=== PATIENT | female | born 1985 | race Caucasian/White ===

== ENCOUNTER 2020-03-01 18:16 | Outpatient (REF) | payer OTHER, SELFPAY ==
[2020-03-01 17:10] LABS: HCG Quant, Pregnancy 4566 mIU/mL (1-3)
[2020-03-03 17:30] LABS: Estradiol 102 pg/mL (See Note); Progesterone 15.5 ng/mL (See Table)
== END 2020-03-01 18:36 ==
LOC: LBN 18:16
PROVIDERS: PCP Obstetrics & Gynecology; Visit Provider Obstetrics & Gynecology
DX: N96 Recurrent pregnancy loss (principal)
CPT/HCPCS: 82670; 84144; 84702

== ENCOUNTER 2020-03-03 15:48 | Outpatient (REF) | payer OTHER, SELFPAY ==
[2020-03-03 16:54] LABS: HCG Quant, Pregnancy 8390 mIU/mL (1-3)
[2020-03-04 16:52] LABS: Estradiol 111 pg/mL (See Note); Progesterone 15.9 ng/mL (See Table)
== END 2020-03-03 16:08 ==
LOC: LBN 15:48
PROVIDERS: PCP Obstetrics & Gynecology; Visit Provider Obstetrics & Gynecology
DX: N96 Recurrent pregnancy loss (principal)
CPT/HCPCS: 82670; 84144; 84702

== ENCOUNTER 2020-03-25 04:13 | Outpatient (CLI) | payer OTHER, SELFPAY ==
[2020-03-25 15:14] LABS: Abs Immature Grans 0.01 k/cumm (0.0-0.09); Absolute Basophil Count 0.02 k/cumm (0.0-0.2); Absolute Eosinophil Count 0.04 k/cumm (0.0-0.7); Absolute Lymphocyte Count 1.96 k/cumm (1.2-3.4); Absolute Monocyte Count 0.36 k/cumm (0.11-0.7); Basophils % 0.3; Eosinophils % 0.6; HCT 42.2 % (36.0-46.0); HGB 14.3 g/dL (12.0-15.5); Immature Grans % 0.1 %; Lymphocytes % 29.3; Mean Corp. HGB Concentration 33.9 g/dL (32.0-36.0); Mean Corpuscular Hemoglobin 28.7 pg (27.0-33.0); Mean Corpuscular Volume 84.7 fL (80-95); Mean Platelet Volume 10.2 fL (8.0-11.0); Monocytes % 5.4; Neutrophils % 64.3; Platelet Count 207 x1000/uL (130-400); RBC 4.98 m/cumm (4.00-5.20); RBC Distribution Width 13.2 % (11.7-14.6); White Blood Cell Count 6.69 k/cumm (4.4-10.8)
[2020-03-25 16:07] LABS: TSH (W/Ref FT4) 4.52 uIU/mL (0.36-3.74)
[2020-03-25 16:31] LABS: FREE T4 0.96 ng/dL (0.76-1.46)
[2020-03-25 17:00] LABS: *AMPHETAMINES SCREEN URINE Negative (Negative); *BARBITURATES SCREEN URINE Negative (Negative); *BENZODIAZEPINES SCREEN URINE Negative (Negative); Cannabinoids THC Negative (Negative); Cocaine Screen,Urine Negative (Negative); METHADONE URINE SCREEN Negative (Negative); OPIATES URINE SCREEN Negative (Negative); Tricyclic Antidepressants Negative (Negative)
[2020-03-26 10:28] LABS: Hepatitis B Surface Ag Negative (Negative)
[2020-03-26 10:55] LABS: Varicella IgG Antibody Positive (See Note)
[2020-03-26 11:08] LABS: Rubella IgG Ab (UVM) Positive (See Note)
[2020-03-26 11:13] LABS: Hepatitis C Ab w Rflx HCV PCR Negative (Negative)
[2020-03-26 15:53] LABS: Chlamydia Result Negative (Negative); GC Result Negative (Negative)
[2020-03-26 16:58] LABS: HIV-1/2 Ag & Ab Screen Negative (Negative)
[2020-03-27 09:44] LABS: Syphilis Total Ab w/Reflex Nonreactive (Nonreactive)
[2020-04-01 01:53] LABS: Buprenorphine Negative
== END 2020-03-25 04:33 ==
PROVIDERS: PCP Obstetrics & Gynecology; Visit Provider Advanced Practice Midwife
DX: O09.01 Supervision of pregnancy with history of infertility, first trimester (principal)
CPT/HCPCS: 36415; 80307; 86787; 86803; 86850; 86900; 86901; 87340; 87389; 87491; 87591; 84439; 84443; 85025; 86762; 86780; 87086

== ENCOUNTER 2020-04-15 13:13 | Outpatient (REF) | payer OTHER, SELFPAY ==
[2020-04-15 14:10] LABS: FREE T4 1.14 ng/dL (0.76-1.46); TSH 2.32 uIU/mL (0.36-3.74)
[2020-04-22 17:17] LABS: Specimen WB Whole Blood
== END 2020-04-15 13:33 ==
LOC: LBN 13:13
PROVIDERS: PCP Obstetrics & Gynecology; Visit Provider Obstetrics & Gynecology
DX: E03.9 Hypothyroidism, unspecified (principal); O99.281 Endocrine, nutritional and metabolic diseases complicating pregnancy, first trimester; Z36.89 Encounter for other specified antenatal screening
CPT/HCPCS: 81329; 84439; 84443

== ENCOUNTER 2020-06-03 01:02 | Outpatient (CLI) | payer OTHER, SELFPAY ==
--- NOTE | 2020-06-03 07:00 | DI.US_ITS ---
EXAM: US OB 2-3 TRIMESTER CLINICAL HISTORY: .z34.90. TECHNIQUE: Transabdominal obstetrical ultrasound performed. COMPARISON: No exams were available for comparison FINDINGS: Transabdominal obstetrical ultrasound performed. FINDINGS: Number of fetuses: One. position: Variable heart rate: 145 bpm. Placental grade: 0 Placental location: Anterior and low lying. The tip of the placenta measures 2.3 cm from the interna l os. BIOMETRIC DATA: BPD: 41cm HC: 165cm AC: 137cm FL: 29cm Cisterna Magna: 3.4 Cerebellum: 1.89 Composite Age: 19 +0 weeks EDC by US: Amniotic fluid : . Amount of fluid is within normal limits. ANATOMICAL SURVEY: Four-chambered heart: Unremarkable. LVOT: Unremarkable. RVOT: Unremarkable. Left-sided stomach: Unremarkable. urinary bladder: Unremarkable. Bilateral kidneys: Unremarkable. Three-vessel cord: Unremarkable. Cord insertion: Unremarkable. Umbilical artery velocity: Unremarkable. Posterior fossa:Unremarkable. ventricles: Unremarkable. nose: Unremarkable. lips: Unremarkable. palate: Unremarkable. spine: Unremarkable. Two arms and two legs: Unremarkable. IMPRESSION: 1. Single live intrauterine gestation as above. 2. Normal anatomic survey. 3. Low lying placenta. DATA REPOSITORY:
== END 2020-06-03 01:22 ==
PROVIDERS: PCP Obstetrics & Gynecology; Visit Provider Obstetrics & Gynecology
DX: Z34.92 Encounter for supervision of normal pregnancy, unspecified, second trimester (principal)
CPT/HCPCS: 76805

== ENCOUNTER 2020-06-10 02:48 | Outpatient (CLI) | payer OTHER, SELFPAY ==
[2020-06-10 13:23] LABS: TSH (W/Ref FT4) 2.24 uIU/mL (0.36-3.74)
== END 2020-06-10 03:08 ==
PROVIDERS: Obstetrics & Gynecology; PCP Obstetrics & Gynecology; Visit Provider Obstetrics & Gynecology
DX: O99.282 Endocrine, nutritional and metabolic diseases complicating pregnancy, second trimester (principal)
CPT/HCPCS: 36415; 84443

== ENCOUNTER 2020-07-26 02:43 | Outpatient (CLI) | payer OTHER, SELFPAY ==
[2020-07-26 09:19] LABS: Abs Immature Grans 0.06 10^3/uL (0.0-0.06); Absolute Basophil Count 0.02 10^3/uL (0.0-0.2); Absolute Eosinophil Count 0.04 10^3/uL (0.0-0.7); Absolute Lymphocyte Count 1.49 10^3/uL (1.2-3.4); Absolute Monocyte Count 0.44 10^3/uL (0.1-0.8); Basophils % 0.3; Eosinophils % 0.5; HCT 37.4 % (36.0-46.0); HGB 12.4 g/dL (11.2-15.7); Immature Grans % 0.8; Lymphocytes % 19.7; MCHC 33.2 % (32.0-36.0); MCV 90.3 fL (80-95); MPV 9.6 fL (8.0-11.0); Monocytes % 5.8; Neutrophils % 72.9; Nucleated RBC 0 %; Platelet Count 175 10^3/uL (130-400); RBC 4.14 10^6/uL (3.93-5.22); RDW 12.9 % (11.7-14.6); WBC 7.55 10^3/uL (4.4-10.8)
[2020-07-26 09:30] LABS: Glucose,1 Hr (Glucola) 100 mg/dL (80-140)
== END 2020-07-26 03:03 ==
PROVIDERS: PCP Obstetrics & Gynecology; Visit Provider Obstetrics & Gynecology
DX: Z34.92 Encounter for supervision of normal pregnancy, unspecified, second trimester (principal)
CPT/HCPCS: 36415; 82950; 85025

== ENCOUNTER 2020-08-05 11:25 | Outpatient (CLI) | payer OTHER, SELFPAY ==
[2020-08-05 11:43] VITALS: BP 103/65; PULSE 75; RESP 18; TEMP 36.6
[2020-08-05] MEDS: Ondansetron O.D.T. 4 MG TABEF PO (11:58)
--- NOTE | 2020-08-05 12:00 | DI.US_ITS ---
EXAM: US RENAL CLINICAL HISTORY: Back pain. TECHNIQUE: Du scale, color and spectral Doppler were used. COMPARISON: No exams were available for comparison FINDINGS: Renal size in cm: Right: 10.3 left: 10.8 Echogenicity: Normal Hydronephrosis: Mild left hydronephrosis could be secondary to . Cyst or mass: No Nephrolithiasis: No Other findings: None Bladder:Normal Prevoid vol:17 cc Postvoid vol: Not performed IMPRESSION: Mild left hydronephrosis could be secondary to . No nephrolithiasis is visible. DATA REPOSITORY:
[2020-08-05] MEDS: Acetaminophen 500 MG TAB 1000 MG PO (12:42)
[2020-08-05 13:49] VITALS: BP 103/65; PULSE 75; TEMP 36.6
--- NOTE | 2020-08-26 09:26 | W.OBNST ---
Date of service: 08/05/20 Time of Service: 09:27 NST Evaluation Reason for NST Reasons for Nonstress Test: OTHER, SEE COMMENT Reason for NST Other: Back pain, cramping Gestational Age Gestational Age in Weeks and Days: 27 Weeks and 3Days Test and Monitor Explained Test/Monitor Explained: Test Explained, Monitor Explained and Patient Verbalized Understanding Vital Signs Blood Pressure: 103/65 Pulse: 75 Temperature: 97.9 F NST Information Date on Monitor: 08/05/20 Time on Monitor: 11:37 Date off Monitor: 08/05/20 Time off Monitor: 12:05 Total Time on Monitor: 28 NST Interventions: PO Hydration, Meal Given and Reposition Patient Contraction Frequency: none NST Evaluation Patient States Movement: Present FHR Baseline: 135 Variability: Moderate 6-25 bpm Accelerations: 10x10 Decelerations: None NST Results: Reactive Note NST Note NST Reviewed and Verified by: Yobani Fowler
[2020-08-26 09:27] VITALS: BP 103/65; PULSE 75; TEMP 36.6
== END 2020-08-05 13:55 | disposition home or self-care (01) ==
LOC: BCD 11:27 → OBS 11:50
PROVIDERS: PCP Obstetrics & Gynecology; Visit Provider Obstetrics & Gynecology
DX: O47.02 False labor before 37 completed weeks of gestation, second trimester (principal); M54.9 Dorsalgia, unspecified; Z3A.27 27 weeks gestation of pregnancy
CPT/HCPCS: 59025; 76770

== ENCOUNTER 2020-08-26 02:39 | Outpatient (CLI) | payer OTHER, SELFPAY ==
[2020-08-26 10:25] LABS: Abs Immature Grans 0.13 10^3/uL (0.0-0.06); Absolute Basophil Count 0.01 10^3/uL (0.0-0.2); Absolute Eosinophil Count 0.07 10^3/uL (0.0-0.7); Absolute Lymphocyte Count 1.79 10^3/uL (1.2-3.4); Absolute Monocyte Count 0.52 10^3/uL (0.1-0.8); Absolute Neutrophil Count 7.22 10^3/uL (1.2-6.7); Basophils % 0.1; Eosinophils % 0.7; Immature Grans % 1.3; Lymphocytes % 18.4; MCHC 33.3 % (32.0-36.0); MCV 89.9 fL (80-95); MPV 9.5 fL (8.0-11.0); Monocytes % 5.3; Neutrophils % 74.2; Nucleated RBC 0 %; Platelet Count 188 10^3/uL (130-400); RBC 4.34 10^6/uL (3.93-5.22); RDW 12.8 % (11.7-14.6); RDW-SD 41.7 fL; WBC 9.74 10^3/uL (4.4-10.8)
[2020-08-26 10:38] LABS: Glucose,1 Hr (Glucola) 101 mg/dL (80-140)
[2020-08-26 11:35] LABS: TSH (W/Ref FT4) 2.26 uIU/mL (0.36-3.74)
== END 2020-08-26 02:59 ==
PROVIDERS: PCP Obstetrics & Gynecology; Visit Provider Obstetrics & Gynecology
DX: O09.293 Supervision of pregnancy with other poor reproductive or obstetric history, third trimester (principal)
CPT/HCPCS: 36415; 82950; 86850; 86900; 86901; 84443; 85025

== ENCOUNTER 2020-09-10 01:45 | Outpatient (CLI) | payer OTHER, SELFPAY ==
--- NOTE | 2020-09-10 07:37 | DI.US_ITS ---
EXAM: US OB F/U FACIAL/LVOT/RVOT CLINICAL HISTORY: check placental location,O44.20. COMPARISON: No exams were available for comparison TECHNIQUE: Transabdominal obstetrical ultrasound performed. FINDINGS: Sonographic images demonstrate a single intrauterine gestation in breech position. Placenta:Anterior. No evidence of previa. The edge of the placenta measures 6.2 cm from the procurement intern al os. Predicted gestational age: 30 2+4 weeks Estimated date of delivery 01 November 2020: heart rate motion is Dopplered at: 141 BPM. IMPRESSION: Anterior placenta without evidence of previa. DATA REPOSITORY:
== END 2020-09-10 02:05 ==
PROVIDERS: PCP Obstetrics & Gynecology; Visit Provider Obstetrics & Gynecology Gynecology
DX: O43.893 Other placental disorders, third trimester (principal)
CPT/HCPCS: 76815

== ENCOUNTER 2020-10-03 21:22 | Outpatient (REF) | payer OTHER, SELFPAY ==
[2020-10-03 15:08] LABS: *AMPHETAMINES SCREEN URINE Negative (Negative); *BARBITURATES SCREEN URINE Negative (Negative); *BENZODIAZEPINES SCREEN URINE Negative (Negative); Cannabinoids THC Negative (Negative); Cocaine Screen,Urine Negative (Negative); METHADONE URINE SCREEN Negative (Negative); OPIATES URINE SCREEN Negative (Negative)
[2020-10-03 15:11] LABS: Tricyclic Antidepressants Negative (Negative)
[2020-10-10 16:38] LABS: Buprenorphine Negative
== END 2020-10-03 21:42 ==
LOC: LBN 21:22
PROVIDERS: PCP Obstetrics & Gynecology; Visit Provider Obstetrics & Gynecology
DX: Z34.93 Encounter for supervision of normal pregnancy, unspecified, third trimester (principal); Z3A.35 35 weeks gestation of pregnancy
CPT/HCPCS: 80307

== ENCOUNTER 2020-10-07 20:28 | Outpatient (REF) | payer OTHER, SELFPAY | END 2020-10-07 20:48 | LOC: LBN 20:28 | PROVIDERS: PCP Obstetrics & Gynecology; Visit Provider Obstetrics & Gynecology | DX: Z34.93 Encounter for supervision of normal pregnancy, unspecified, third trimester (principal); Z36.85 Encounter for antenatal screening for Streptococcus B | CPT/HCPCS: 87081 ==

== ENCOUNTER 2020-10-20 23:58 | Inpatient (IN) | payer OTHER, SELFPAY ==
[2020-10-21] VITALS (19 sets, daily range): BP systolic 101–124; BP diastolic 59–80; PULSE 78–91; RESP 15–18; TEMP 36.4–37.1; O2SAT 97–100
[2020-10-21] MEDS: Calcium Carbonate *TUMS* 500 MG CHEW 1000 MG PO (02:46)
[2020-10-21] MEDS: AZITHROMYCIN 500 MG in Normal Saline 250 ML 250 MG IVPB (05:30)
[2020-10-21] MEDS: Lactated Ringers 1,000 ML 200 ML IV (05:40)
[2020-10-21 05:42] LABS: HCT 36.6 % (36.0-46.0); HGB 12.1 g/dL (11.2-15.7); MCH 29.2 pg (27.0-33.0); MCHC 33.1 % (32.0-36.0); MCV 88.2 fL (80-95); MPV 10.3 fL (8.0-11.0); Platelet Count 196 10^3/uL (130-400); RBC 4.15 10^6/uL (3.93-5.22); RDW 12.7 % (11.7-14.6); WBC 11.41 10^3/uL (4.4-10.8)
--- NOTE | 2020-10-21 06:18 | HPE_ITS ---
Date of service: 10/21/20 Time of Service: 06:18 OB-HPI Labor/Delivery History of Present Illness Reason for Visit: RULE OUT LABOR NORMA Calculator Estimated Delivery Date Method Current WG Current Estimate 11/01/20 Ultrasound #1 38w 3d Other Estimates 11/01/20 LMP (Certain) 38w 3d History of Present Expected Delivery Route/Plan FOB - Reginaldo Rubio (his first child) Specific Issues/Plan 1. Infertility patient. S/P IVF x 2 with recurrent SAB 2. Spontaneous . 3. On anticoagulation Lovenox 40 mg SQ daily. Will continue until second trimester 4. MTHFR heterozygote 5. JEREMIAS-I homozygote 6. MD Care 7. Vegetarian - eats eggs and dairy and has started eating some chicken and seafood. 8. Marginal placenta previa [facility] Medical History (Updated 09/15/20 @ 23:21 by Le Nix MD) Back pain affecting Dysmenorrhea Endometriosis 2017 Homozygous for JEREMIAS-1 4G allele Infertility Insomnia trazadone MTHFR gene mutation Surgical History H/O exploratory laparotomy with lysis of adhesions Family History Maternal Grandmother Stroke 40s, smoker Miscarriage Mother Thyroid disease Mitral valve disorder mitral valve replaced bicuspid valve Father Non-Hodgkin lymphoma age 59 Maternal Grandfather Pancreatic adenoma Carotid artery disorder had surgery for blockage Maternal Uncle Diabetes Social History Smoking risk assessment performed?: No History History 3 Para 0 Hx # Term Pregnancies 0 Multiple births Hx # Pregnancies 0 Ectopic pregnancies AB induced 0 Hx Number of Living Children 0 AB spontaneous 2 Past Pregnancies Del. Date GA/Weeks # Outcome Route Wgt Sex Labor Lgth Anesthes ia Location Prov Complic 04/17/17 Unsuccessful 07/15/17 Unsuccessful Delivery Date: 04/17/17 heavy bleeding, misoprostol Prachi Christianson Delivery Date: 07/15/17 D and C Prachi Christianson Meds Home Medications and Allergies Home Medications Medication Instructions Recorded Confirmed Type aspirin 81 mg chewable tablet 81 mg PO DAILY 03/01/20 10/14/20 History omega-3 fatty acids 1,000 mg 1,000 mg PO DAILY 03/01/20 10/14/20 History capsule homocystex 1 tab PO DAILY 03/25/20 10/14/20 History prenat.vits,talon,ait-dgcc-yhvix 1 tab PO BID tab 03/25/20 10/14/20 History metformin 500 mg tablet 500 mg PO BID #120 tab 06/21/20 10/14/20 Rx calcium carbonate 500 mg calcium 500 mg PO DAILY 06/28/20 10/14/20 History (1,250 mg) tablet magnesium 200 mg tablet 200 mg PO DAILY 06/28/20 10/14/20 History levothyroxine 25 mcg tablet 25 mcg PO DAILY #30 tab 09/23/20 10/14/20 Rx cholecalciferol (vitamin D3) 25 25 mcg PO DAILY 09/24/20 10/14/20 History mcg (1,000 unit) capsule Allergies Allergy/AdvReac Type Severity Reaction Status Date / Time cephalexin [From Keflex] Allergy Intermediate rash Verified 10/03/20 10:54 ibuprofen Allergy Intermediate rash Verified 10/03/20 10:54 Exam Physical Exam Vital signs: Temp Pulse Resp BP Pulse Ox 36.4 C L 78 15 112/76 99 10/21/20 01:27 10/21/20 04:32 10/21/20 01:27 10/21/20 04:32 10/21/20 01:27 Detailed Labor and Delivery Exam Mayo Score: Cervical Points Exam 0 1 2 3 Dilation Closed 1-2cm 3-4 cm 5-6cm Effacement 0-30% 40-50% 60-70% 80% Consistency Firm Medium Soft Station -3 -2 -1,0 +1,+2 Position Posterior Mid Anterior Results Abnormal Lab Findings: Abnormal Labs 10/20/20 10/20/20 05:29 05:29 WBC 11.41 H Crossmatch See Detail Risk Assessment Risk for Shoulder Dystocia Historical/Initial OB: NEGATIVE FOR: Pelvic Abnormality, Pre- BMI>30, Previous Shoulder Dystocia or Previous Macrosomia Risk for Pre-Eclampsia Yes, if one or more: NEGATIVE FOR: Hx Pre-E/Gest HTN, Chronic HTN, Multiple Gestation, Pre-gestational DM, Renal Disease, Systemic Lupus or APA Syndrome Yes, if 2 or more: POSITIVE FOR: Nulliparity; NEGATIVE FOR: Age>= 35 yrs, >10yr btwn pregnancies, BMI>30, ethinicty, Mother/Sister w/ Pre-E or Previous IUGR Risk for Post- Hemorrhage Initial: NEGATIVE FOR: Multiple Gestation, Previous PPH, Known Clotting Deficiency, Grand Multiparity or Anticoagulation
--- NOTE | 2020-10-21 06:23 | HPE_ITS ---
Date of service: 10/21/20 Time of Service: 06:23 Assessment and Plan Assessment and plan (1) Normal labor: Status: Acute Assessment and plan: Patient is a 35-year-old 3 para 0-0-2-0 who had a spontaneous conception of this after 2 previous losses. 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 She had been placed previously empirically on subcutaneous Lovenox for the first trimester of her by reproductive endocrinology in [place]. Since that time, she has only been using a baby aspirin. She presented late last night with onset of regular contractions. Throughout the evening and night they become more steady and painful. Cervix is dilated approximately 2 cm and thin. Patient is known to have a mild presentation which was confirmed by bedside ultrasound in the transverse back up position. Due to this fact, recommendation for proceeding with her previously scheduled primary section was made. Risk benefits and alternatives of her section were explained to the patient in full informed consent was obtained. She understands the risk of bleeding, infection, injury to surrounding organs, risk of anesthesia, and possibly . She will have baseline laboratory studies including CBC type and screen and her Covid testing. She will have antibiotic prophylaxis with both Zithromax and Ancef prior to her procedure. 24 hours post spinal anesthesia, she will continue her baby aspirin and resume Lovenox 40 mg subcu daily for the next 6 weeks. (2) Transverse lie of fetus: Status: Acute Assessment and plan: We will proceed to unscheduled primary section (3) Encounter for supervision of normal , unspecified, third trimester: Status: Acute (4) Hypothyroidism affecting in first trimester: Status: Acute Assessment and plan: Continue Synthroid (5) MTHFR gene mutation: Status: Acute Assessment and plan: DVT prophylaxis with compression stockings and subsequent Lovenox post spinal anesthesia (6) Homozygous for JEREMIAS-1 4G allele: Status: Acute OB-HPI Labor/Delivery History of Present Illness Reason for Visit: RULE OUT LABOR Chief Complaint: Uterine Contractions. NORMA Calculator Estimated Delivery Date Method Current WG Current Estimate 11/01/20 Ultrasound #1 38w 3d Other Estimates 11/01/20 LMP (Certain) 38w 3d History of Present Expected Delivery Route/Plan FOB - Reginaldo Rubio (his first child) Patient is a 35-year-old 3 para 0-0-2-0 at 38 weeks and 3 days. She had onset of labor with contractions starting approximately 12 hours ago. Initially irregular. She had presented to the center for evaluation at approximately midnight was found to be 1 to 2 cm dilated. She subsequently had increasing contractions without vaginal bleeding or loss of fluid. Due to this fact, and her known malpresentation, will proceed to the OR for section. She will have Covid testing which is currently pending. Baseline laboratory studies, and IV antibiotic prophylaxis. Overall she has been in her usual state of health. Bowel and bladder function have been normal. She has no shortness of breath, fever, chills. She and her partner have been quarantining at home for the past 10 days. She had been previously scheduled for primary section due to malpresentation. Specific Issues/Plan 1. Infertility patient. S/P IVF x 2 with recurrent SAB 2. Spontaneous . 3. On anticoagulation Lovenox 40 mg SQ daily. Will continue until im 4. MTHFR heterozygote 5. JEREMIAS-I homozygote 6. MD Care 7. Vegetarian - eats eggs and dairy and has started eating some chicken and seafood. 8. Marginal placenta previa Review of Systems All systems reviewed & are unremarkable except as noted in HPI and below Constitutional Constitutional: Reports difficulty sleeping, Denies fever(s), Denies headache(s), Denies increased appetite, Denies night sweats and Denies poor appetite Eyes Eyes: Denies loss of vision ENT Ears, Nose, Mouth, and Throat: Denies dizziness and Denies headache(s) Cardiovascular Cardiovascular: Reports as per HPI, Denies chest pain, Denies syncope and Denies irregular heart rhythm Respiratory Respiratory: Reports as per HPI, Denies chest congestion and Denies cough Gastrointestinal Gastrointestinal: Reports as per HPI, Denies abdominal pain, Denies change in bowel habits and Reports nausea Genitourinary Genitourinary: Reports system reviewed and no additional complaints, except as documented Musculoskeletal Musculoskeletal: Reports system reviewed and no additional complaints, except as documented Integumentary/Breasts Skin/Breast: Reports system reviewed and no additional complaints, except as documented Neurologic Neurologic: Reports system reviewed and no additional complaints, except as documented, Denies dizziness, Denies syncope, Denies headache(s) and Denies loss of vision Psychiatric Psychiatric: Reports as per HPI [facility] Medical History Back pain affecting Dysmenorrhea Endometriosis 2018 Homozygous for JEREMIAS-1 4G allele Infertility Insomnia trazadone MTHFR gene mutation Surgical History H/O exploratory laparotomy with lysis of adhesions Family History Maternal Grandmother Stroke 40s, smoker Miscarriage Mother Thyroid disease Mitral valve disorder mitral valve replaced bicuspid valve Father Non-Hodgkin lymphoma age 59 Maternal Grandfather Pancreatic adenoma Carotid artery disorder had surgery for blockage Maternal Uncle Diabetes Social History Smoking risk assessment performed?: No History History 3 Para 0 Hx # Term Pregnancies 0 Multiple births Hx # Pregnancies 0 Ectopic pregnancies AB induced 0 Hx Number of Living Children 0 AB spontaneous 2 Past Pregnancies Del. Date GA/Weeks # Outcome Route Wgt Sex Labor Lgth Anesthes ia Location Prov Complic 04/17/17 Unsuccessful 07/15/17 Unsuccessful Delivery Date: 04/17/17 heavy bleeding, misoprostol Prachi Christianson Delivery Date: 07/15/17 D and C Prachi Christianson Meds Home Medications and Allergies Home Medications Medication Instructions Recorded Confirmed Type aspirin 81 mg chewable tablet 81 mg PO DAILY 03/01/20 10/14/20 History omega-3 fatty acids 1,000 mg 1,000 mg PO DAILY 03/01/20 10/14/20 History capsule homocystex 1 tab PO DAILY 03/25/20 10/14/20 History prenat.vits,talon,aip-oojv-uvbxb 1 tab PO BID tab 03/25/20 10/14/20 History metformin 500 mg tablet 500 mg PO BID #120 tab 06/21/20 10/14/20 Rx calcium carbonate 500 mg calcium 500 mg PO DAILY 06/28/20 10/14/20 History (1,250 mg) tablet magnesium 200 mg tablet 200 mg PO DAILY 06/28/20 10/14/20 History levothyroxine 25 mcg tablet 25 mcg PO DAILY #30 tab 09/23/20 10/14/20 Rx cholecalciferol (vitamin D3) 25 25 mcg PO DAILY 12/08/20 12/28/20 History mcg (1,000 unit) capsule Allergies Allergy/AdvReac Type Severity Reaction Status Date / Time cephalexin [From Keflex] Allergy Intermediate rash Verified 10/03/20 10:54 ibuprofen Allergy Intermediate rash Verified 10/03/20 10:54 Exam Physical Exam Vital signs: Temp Pulse Resp BP Pulse Ox 97.5 F L 78 15 112/76 99 10/21/20 01:27 10/21/20 04:32 10/21/20 01:27 10/21/20 04:32 10/21/20 01:27 Detailed Labor and Delivery Exam Mayo Score: Cervical Points Exam 0 1 2 3 Dilation Closed 1-2cm 3-4 cm 5-6cm Effacement 0-30% 40-50% 60-70% 80% Consistency Firm Medium Soft Station -3 -2 -1,0 +1,+2 Position Posterior Mid Anterior Fetus A Monitor Accelerations: 15 X 15 Monitor Decelerations: None Variability: Moderate (6-25 BPM) Presentation: Transverse Lie Categories: Category I Est. Weight: 6 lb Assessment Note: Regular contractions every 4 minutes, category 1 strip HEENT Exam HEENT Exam: Normal Neck Exam Neck Exam: Normal Respiratory Exam Respiratory Exam: Normal Cardiovascular Exam Cardiovascular Exam: Normal Abdominal Exam Abdominal Exam: Normal Detailed Extremities Exam Extremities: Present full ROM; Absent cyanosis, clubbing, edema, calf tenderness and Tiffani's sign Skin Exam Skin Exam: Normal Neurological Exam Neurological Exam: Normal Psychiatric Exam Psychiatric Exam: Normal Results Abnormal Lab Findings: Abnormal Labs 10/20/20 10/20/20 05:29 05:29 WBC 11.41 H Crossmatch See Detail Risk Assessment Risk for Shoulder Dystocia Historical/Initial OB: NEGATIVE FOR: Pelvic Abnormality, Pre- BMI>30, Previous Shoulder Dystocia or Previous Macrosomia Increased Risk?: No Risk for Pre-Eclampsia Yes, if one or more: NEGATIVE FOR: Hx Pre-E/Gest HTN, Chronic HTN, Multiple Gestation, Pre-gestational DM, Renal Disease, Systemic Lupus or APA Syndrome Yes, if 2 or more: POSITIVE FOR: Nulliparity; NEGATIVE FOR: Age>= 35 yrs, >10yr btwn pregnancies, BMI>30, ethinicty, Mother/Sister w/ Pre-E or Previous IUGR Risk for Post- Hemorrhage Initial: NEGATIVE FOR: Multiple Gestation, Previous PPH, Known Clotting Deficiency, Grand Multiparity or Anticoagulation At Risk?: Yes Interventions: Aggressive uterine massage post delivery, Pitocin postdelivery, will have compression stockings and Lovenox postdelivery Counseled re: Active Management: Yes Date/Initials: KAMINI 10/21/2020 Risks Reviewed Risks Reviewed Upon Admission: Yes
[2020-10-21 06:25] LABS: COVID-19 PCR Negative (Negative); Influenza A PCR Negative (Negative); Influenza B PCR Negative (Negative); RSV PCR Negative (Negative)
[2020-10-21] MEDS: Sodium Citrate 30 ML CUP PO (06:34)
[2020-10-21 06:40] LABS: Source Nasopharynx
[2020-10-21] MEDS: ceFAZolin 2 GM/50 ML BAG IVPB (06:55)
[2020-10-21] MEDS: Lidocaine 1% Multi-Dose 50 ML VIAL ×2 (07:05→07:54)
--- NOTE | 2020-10-21 07:25 | PLAC_PTH ---
PATIENT: Dick Rubio LOC: OBS U#:[id number] AGE/SX: 35/F ROOM: OBS.304 RE10/21/[address]: Gloria Cerna DO : 1985 BED: A DIS: 10/23/2020 SPEC #: [id number] RECD: 10/21/20 12:33 STATUS: SOUT REQ #: [id number] BROOKE: 10/21/20 07:[address]: Gloria Cerna DEPT: Surgical Specimen RECD BY: Hali Santiago ENTERED: 10/21/20 12:35 SP TYPE: PLAC OTHR DR: oYbani Fowler MD Tissues: 1 - PLACENTA (3RD TRIMESTER) Procedures: GROSS AND MICRO LEVEL 5 Comments: [id number]
[2020-10-21] MEDS: fentaNYL 100 MCG/2 ML VIAL IT (07:30)
[2020-10-21] MEDS: Lactated Ringers 1,000 ML 120 ML IV (08:15)
--- NOTE | 2020-10-21 08:30 | PDOC.OPNB_ITS ---
Date of service: 10/21/20 Time of Service: 08:30 Operative Note Operative Note Delivery Method: Unscheduled Category: Urgent DATE OF PROCEDURE: 10/21/20 PRE-OP DIAGNOSES: Active labor, breech presentation POST-OP DIAGNOSES: same PROCEDURE: Primary low transverse section SURGEON: Gloria Cerna Anesthesia: spinal Estimated blood loss (mL): 300 Pathology: other (Placenta) Complications: None Patient was transported to: floor Patient's condition: stable Indications: Active labor, breech presentation, intrauterine at 38 weeks 2 days Findings: Delivery of viable male infant, Apgars 9 and 9, felipe breech presentation Procedure Description: Patient is a 35-year-old 3 para 0-0-2-0 who had care with women's wellness. had been complicated by the fact that she had previous recurrent loss and known hypercoagulable state. Reproductive endocrinology from her previous home in [place] suggested Lovenox for through the first trimester which was then discontinued. She had remainder of her course was uncomplicated. She presented in early labor last evening with progression to active labor luis every 4 minutes with cervical change. She was known to be group B strep positive and did have spontaneous rupture of membranes upon entry to the operating suite. She did not receive penicillin for group B strep prophylaxis however she did receive 1 dose of Zithromax and 1 dose of Ancef prior to her delivery. Risk benefits and alternatives of section were explained to the patient full informed consent was obtained. She is taken the operating suite with an IV running where she was placed in the seated position compression stockings had been placed and were active. She had administration of spinal anesthesia with ease which was tested and found to be adequate. She was then placed in dorsal supine position prepped and draped in the usual sterile fashion after Juares catheter had been inserted. Pfannenstiel skin incision was made carried on the underlying fascia which was nicked in the midline extended laterally. Fascial incision was then extended rectus muscles identified and split in the midline. Peritoneum identified tented up and entere d sharply and the peritoneal incision was extended superiorly and inferiorly. At this point bladder blade was inserted and the vesicouterine peritoneum was identified tented up and entered sharply. Bladder flap was created and a low transverse uterine incision was made with a scalpel and extended bluntly laterally. Fetus was found to be in the breech presentation. Delivery of the breech through the incision was made with ease. With gentle downward traction body delivered to the point that the scapulas were weaned the right arm was swept across the chest as well as left arm and the head was delivered atraumatically. Mouth and nose were suctioned upon delivery three-vessel cord was noted clamped x2 and cut and the infant was handed off to the waiting nursery nurse. At this point cord blood gases and cord blood sample were both obtained and placenta was delivered manually. There was of note, a short umbilical cord approximately 12 cm in length. At this point the uterus wa s exteriorized and cleared of all clot and debris. Uterine incision was closed in 2 layer closure with 0 Vicryl suture in a running locked fashion and an imbricating stitch. At this point uterus was returned to the abdomen abdomen irrigated copious amounts normal saline and uterine incision found to be hemostatic. Uterus tubes and ovaries are normal. Fascial incision was then closed using 0 Vicryl suture in a running fashion and subcutaneous tissue irrigated copious amounts normal saline subcu tissue was reapproximated with 3-0 Vicryl and skin edge reapproximated with 4-0 Monocryl in a subcuticular fashion. Steri-Strips were placed as was sterile dressing. Uterus was firm and 4 cm below the umbilicus postdelivery. Patient was taken the floor in stable condition. EBL: 300 cc Complications: None apparent Findings: 1. Delivery of a viable male infant from the felipe breech presentation 2. Normal tubes ovaries and uterus 3. Short umbilical cord Pathology: Placenta for examination Gestational Age in Weeks/Days: 38 Weeks and 3 Days Infant Gender: Male
[2020-10-21] MEDS: Acetaminophen 325 MG TAB 650 MG PO (15:05)
[2020-10-21] MEDS: Naproxen 250 MG TAB (18:58)
[2020-10-21] MEDS: Enoxaparin 40 MG/0.4 ML SYR SC (20:29)
[2020-10-22] VITALS (7 sets, daily range): BP systolic 98–109; BP diastolic 67–73; PULSE 77–100; RESP 12–18; TEMP 36.5–37.4; O2SAT 97
[2020-10-22] MEDS: oxyCODONE 5 mg/Acetaminophen 325 mg TAB PO ×2 (07:15→17:03)
[2020-10-22] MEDS: Levothyroxine 25 MCG TAB PO (07:15)
[2020-10-22] MEDS: Docusate Sodium 100 MG CAP PO (07:16)
--- NOTE | 2020-10-22 07:59 | W.PM.OBPNV1 ---
Date of service: 10/22/20 Time of Service: 07:59 Assessment and Plan Assessment and plan (1) Status post primary low transverse section: Status: Acute Assessment and plan: Postoperative day #1 status post primary low transverse section. Doing well. Will get up to ambulate today. Juares catheter is out. IV will be hep-locked. She will resume Lovenox 40 mg subcu daily for prophylaxis due to her hypercoagulable state and clotting disorder. She will work on breast-feeding she is otherwise doing well. Circumcision to be performed tomorrow Subjective Subjective Interval history: Postoperative day #1, doing well. Has not been up to ambulate. Juares catheter removed this morning. Mild incisional pain. Working on breast-feeding. Good bonding Patient comments: Incisional pain and Tolerating diet baby status: Doing well, Nursing well and Strong Bonding Observed feeding status: Exclusively breast feeding Exam Physical Exam Vital signs: Temp Pulse Resp BP Pulse Ox 97.7 F 100 H 12 101/70 97 10/22/20 07:15 10/22/20 07:15 10/22/20 07:15 10/22/20 07:15 10/22/20 07:15 Constitutional Constitutional: no acute distress and cooperative HEENT Exam HEENT Exam: Normal Neck Exam Neck Exam: Normal Respiratory Exam Respiratory Exam: Normal Cardiovascular Exam Cardiovascular Exam: Normal Abdominal Exam Comments: Soft and nontender Fundal Exam Fundus: Below Umbilicus and Firm (Exam per nursing) Extremities Exam Extremity Exam: Normal; negative Calf Tenderness and Edema Skin Exam Skin Exam: Normal DetailedPsychiatric Exam Psych Exam: Normal Affect, Normal Thougth Process, Cooperative and Good Insight Results Hemoglobin/Hematocrit: Hgb 12.1 g/dL (11.2-15.7) 10/20/20 05:29 Hct 36.6 % (36.0-46.0) 10/20/20 05:29 Abnormal Lab Findings: Abnormal Labs 10/20/20 10/20/20 05:29 05:29 WBC 11.41 H Crossmatch See Detail
[2020-10-22] MEDS: Naproxen 250 MG TAB PO ×2 (11:28→21:19)
[2020-10-22 11:48] LABS: Abs Immature Grans 0.08 10^3/uL (0.0-0.06); Absolute Basophil Count 0.03 10^3/uL (0.0-0.2); Absolute Eosinophil Count 0.03 10^3/uL (0.0-0.7); Absolute Lymphocyte Count 1.15 10^3/uL (1.2-3.4); Absolute Neutrophil Count 9.54 10^3/uL (1.2-6.7); Basophils % 0.3; Eosinophils % 0.3; HCT 36.4 % (36.0-46.0); Immature Grans % 0.7; Lymphocytes % 10.1; MCH 29.5 pg (27.0-33.0); MCV 89.4 fL (80-95); Monocytes % 4.7; Neutrophils % 83.9; Nucleated RBC 0 %; Platelet Count 204 10^3/uL (130-400); RBC 4.07 10^6/uL (3.93-5.22); RDW-SD 42.3 fL; WBC 11.37 10^3/uL (4.4-10.8)
[2020-10-22 11:49] LABS: Absolute Monocyte Count 0.53 10^3/uL (0.1-0.8)
[2020-10-22] MEDS: Enoxaparin 40 MG/0.4 ML SYR SC (21:19)
[2020-10-23 02:00] VITALS: BP 116/79; PULSE 77; RESP 18; TEMP 36.7
[2020-10-23] MEDS: Levothyroxine 25 MCG TAB PO (06:52)
[2020-10-23 08:30] VITALS: BP 104/59; PULSE 78; RESP 20; TEMP 36.8
[2020-10-23] MEDS: Acetaminophen 325 MG TAB 650 MG PO (08:44)
[2020-10-23] MEDS: Naproxen 250 MG TAB PO (08:44)
[2020-10-23] MEDS: Docusate Sodium 100 MG CAP PO (08:47)
--- NOTE | 2020-10-23 10:17 | W.PM.OBPNV1 ---
Date of service: 10/23/20 Time of Service: 10:17 Assessment and Plan Assessment and plan (1) Status post primary low transverse section: Status: Acute Assessment and plan: Postoperative day #2 status post primary low transverse section for breech. Doing well. Ambulating, tolerating regular diet and oral pain medication with stable vital signs. (2) MTHFR gene mutation: Status: Acute (3) Homozygous for JEREMIAS-1 4G allele: Status: Acute Assessment and plan: Will have prophylaxis with subcutaneous Lovenox 40 mg daily for the next 6 weeks. Subjective Subjective Interval history: Patient seen and examined this morning. Doing well. Ambulating. Tolerating a regular diet and oral pain medication. Patient comments: No complaints and Incisional pain [place] baby status: Doing well, Nursing well and Strong Bonding Observed feeding status: Exclusively breast feeding Exam Physical Exam Vital signs: Temp Pulse Resp BP Pulse Ox 98.1 F 77 18 116/79 97 10/23/20 02:00 10/23/20 02:00 10/23/20 02:00 10/23/20 02:00 10/22/20 15:35 Constitutional Constitutional: no acute distress HEENT Exam HEENT Exam: Normal Neck Exam Neck Exam: Normal Respiratory Exam Respiratory Exam: Normal Cardiovascular Exam Cardiovascular Exam: Normal Abdominal Exam Abdomen: Tender Comments: Incision clean, dry, intact. No erythema, no ecchymosis. Fundal Exam Fundus: Below Umbilicus and Firm Extremities Exam Extremity Exam: Normal; negative Calf Tenderness and Edema Neurological Exam Neurological Exam: Normal Psychiatric Exam Psychiatric Exam: Normal Results Hemoglobin/Hematocrit: Hgb 12.0 g/dL (11.2-15.7) 10/22/20 11:29 Hct 36.4 % (36.0-46.0) 10/22/20 11:29 Abnormal Lab Findings: Abnormal Labs 10/20/20 10/20/20 10/22/20 05:29 05:29 11:29 WBC 11.41 H 11.37 H Absolute Neutrophils 9.54 H Absolute Lymphocytes 1.15 L Crossmatch See Detail
--- NOTE | 2020-10-23 10:26 | W.PM.OBDISCH ---
Date of service: 10/23/20 Time of Service: 10:26 DS: Diagnosis Discharge Diagnosis (1) Status post primary low transverse section: Status: Acute (2) MTHFR gene mutation: Status: Acute (3) Homozygous for JEREMIAS-1 4G allele: Status: Acute Discharge Plan Disposition Patient Disposition: HOME Condition: Good Discharge Details Reason For Visit: RULE OUT LABOR Admit Date/Time: 10/21/20 06:45 Admit Provider: Gloria Cerna Attending Provider: Gloria Cerna Primary Care Provider: Yobani Fowler Hospital Course Hospital Course: Patient presented at 38 weeks and 4 days with spontaneous labor. She had a known breech presentation which was confirmed by ultrasound. Over the course of approximately 10 hours that she had a more regular, stronger contractions with cervical change. The decision was made for her to undergo her low transverse section at that point. She delivered a viable male from the breech presentation. She had uncomplicated course and was discharged home ambulating, tolerating regular diet and oral pain medication with stable vital signs. She will continue on Lovenox therapy 40 mg subcu for the total of 6 weeks . At that point she will be transition back to baby aspirin only. Home Meds and New Rx's Prescriptions: New docusate sodium [Colace] 100 mg Capsule 100 mg PO BID PRN PRNQty: 30 RF: 0 enoxaparin [Lovenox] 40 mg/0.4 mL Syringe 40 mg subcut Q24H 42 Days Qty: 16.8 RF: 0 naproxen 250 mg Tablet 250 mg PO BID Qty: 30 RF: 1 oxycodone-acetaminophen 5-325 mg Tablet 1 - 2 tab PO Q4H PRN PRNQty: 14 RF: 0 Continued omega-3 fatty acids 1,000 mg capsule 1,000 mg PO DAILY RF: 0 prenat.vits,talon,las-xjsm-ineyi Tablet 1 tab PO BID RF: 0 homocystex capsule 1 tab PO DAILY RF: 0 calcium carbonate [Calcium 500] 500 mg calcium (1,250 mg) tablet 500 mg PO DAILY RF: 0 magnesium 200 mg tablet 200 mg PO DAILY RF: 0 cholecalciferol (vitamin D3) 25 mcg (1,000 unit) capsule 25 mcg PO DAILY RF: 0 levothyroxine [Synthroid] 25 mcg tablet 25 mcg PO DAILY Qty: 30 RF: 2 Discontinued aspirin 81 mg tablet,chewable 81 mg PO DAILY RF: 0 metformin 500 mg tablet 500 mg PO BID Qty: 120 RF: 2 Discharge Instructions Additional Instructions: Follow-up with Dr. Cerna Stand Alone Forms: BC Discharge Instruc Activity:: No heavy lifting, pelvic Equipment/Supplies:: No Equipment Needed Diet:: As Tolerated Discharge Orders Discharge Orders: Discharge Order (Routine); Ordered 10/23/20 Ordered By: Gloria Cerna OB:DS Summary Contraception Discussed Contraception Discussed: Yes, Gender-Baby A: Male weight: 8 lb 0.397 oz Status at Discharge Functional status at discharge: independent ambulation Overall status at discharge: patient is progressing back to baseline Mental Status: mental status grossly normal Speech and Movement: speech and movement normal Mood: congruent mood Affect: normal affect Exam Physical Exam Vital signs: Temp Pulse Resp BP Pulse Ox 98.1 F 77 18 116/79 97 10/23/20 02:00 10/23/20 02:00 10/23/20 02:00 10/23/20 02:00 10/22/20 15:35 Constitutional Comments: See exam from progress note dated 10/23/2020 [facility] Medical History Back pain affecting Dysmenorrhea Endometriosis 2017 Homozygous for JEREMIAS-1 4G allele Infertility Insomnia trazadone MTHFR gene mutation Normal labor Transverse lie of fetus Surgical History H/O exploratory laparotomy with lysis of adhesions Status post primary low transverse section Family History Maternal Grandmother Stroke 40s, smoker Miscarriage Mother Thyroid disease Mitral valve disorder mitral valve replaced bicuspid valve Father Non-Hodgkin lymphoma age 59 Maternal Grandfather Pancreatic adenoma Carotid artery disorder had surgery for blockage Maternal Uncle Diabetes Social History Smoking risk assessment performed?: No History History 3 Para 0 Hx # Term Pregnancies 0 Multiple births Hx # Pregnancies 0 Ectopic pregnancies AB induced 0 Hx Number of Living Children 0 AB spontaneous 2 Past Pregnancies Del. Date GA/Weeks # Outcome Route Wgt Sex Labor Lgth Anesthesia Location Prov Complic 04/17/17 Unsuccessful 07/15/17 Unsuccessful Delivery Date: 04/17/17 heavy bleeding, misoprostol Prachi Christianson Delivery Date: 07/15/17 D and C Prachi Christianson DS: Data Vitals/I&O Vitals and I&O: Vital Signs Temperature 98.1 F 10/23/20 02:00 Pulse 77 10/23/20 02:00 Pulse Rhythm Regular 10/22/20 20:00 Respiratory Rate 18 10/23/20 02:00 Blood Pressure 116/79 10/23/20 02:00 Blood Pressure Mean 91 10/23/20 02:00 Pulse Oximetry 97 10/22/20 15:35 Oxygen Delivery Method Room Air 10/21/20 21:00 Oxygen Flow Rate 0 10/21/20 21:00 Pain Level 2 10/22/20 15:35 Intake & Output 10/22/20 10/22/20 10/23/20 11:59 23:59 11:59 Output Total 1250 / 1450 200 / 1450 Balance -1250 / -1450 -200 / -1450 Output: Urine 1250 / 1450 200 / 1450 Other: Urine Color Yellow Pale Urine Appearance Clear Clots Urine Odor None Voiding Methods Toilet Data Completed and Pending Labs on day of discharge: Labs from last 24 hours 10/22/20 10/20/20 11:29 05:29 WBC 11.37 H RBC 4.07 Hgb 12.0 Hct 36.4 MCV 89.4 MCH 29.5 MCHC 33.0 RDW 13.0 Plt Count 204 MPV 10.0 Immature Gran % 0.7 Neutrophils % 83.9 Lymphocytes % 10.1 Monocytes % 4.7 Eosinophils % 0.3 Basophils % 0.3 Nucleated RBC % 0 Absolute Neutrophils 9.54 H Absolute Lymphocytes 1.15 L Absolute Monocytes 0.53 Absolute Eosinophils 0.03 Absolute Basophils 0.03 Crossmatch See Detail
== END 2020-10-23 14:45 | disposition home or self-care (01) | DRG 787 ==
PROVIDERS: Admitting Provider Obstetrics & Gynecology; PCP Obstetrics & Gynecology; Visit Provider Obstetrics & Gynecology
PROC: 10D00Z1 Extraction of Products of Conception, Low, Open Approach (ICD-10-PCS; CPT 59514; principal; 2020-10-21 07:30)
DX: O32.1XX0 Maternal care for breech presentation, not applicable or unspecified (principal); O99.12 Other diseases of the blood and blood-forming organs and certain disorders involving the immune mechanism complicating childbirth; D68.69 Other thrombophilia; O44.23 Partial placenta previa NOS or without hemorrhage, third trimester; Z37.0 Single live birth; O99.284 Endocrine, nutritional and metabolic diseases complicating childbirth; E03.9 Hypothyroidism, unspecified; Z3A.38 38 weeks gestation of pregnancy; O75.89 Other specified complications of labor and delivery; Z14.8 Genetic carrier of other disease
CPT/HCPCS: 59514; 36415; 82803; 85027; 86850; 86900; 86901; 86920; J1650; U0003; 85025; 88307; J0456; J0690; J1100; J2370; J2405; J3010

== ENCOUNTER 2020-11-29 01:41 | Outpatient (CLI) | payer OTHER, SELFPAY ==
[2020-11-29 12:39] LABS: TSH (W/Ref FT4) 1.55 uIU/mL (0.36-3.74)
== END 2020-11-29 01:42 | disposition home or self-care (01) ==
LOC: LBO 01:41
PROVIDERS: PCP Obstetrics & Gynecology; Visit Provider Obstetrics & Gynecology
DX: E03.9 Hypothyroidism, unspecified (principal)
CPT/HCPCS: 36415; 84443

== ENCOUNTER 2020-12-12 13:49 | Outpatient (REF) | payer OTHER, SELFPAY ==
--- NOTE | 2020-12-12 13:20 | PAPFT_PTH ---
PATIENT: Dick Rubio LOC: [facility] U#:[id number] AGE/SX: 35/F ROOM: RE12/12/[address]: Gloria Cerna DO : 1985 BED: DIS: 12/12/2020 SPEC #: [id number] RECD: 12/12/20 17:03 STATUS: [place] RESea #: [id number] BROOKE: 12/12/20 13:[address]: Gloria Cerna DEPT: [facility] Cytology RECD BY: Hali Santiago ENTERED: 12/12/20 17:03 SP TYPE: PAPFT OTHR DR: Yobani Fowler MD Tissues: 1 - CX/ENDOCX FOR PAP SMEARS Procedures: PAP THIN PREP/UVM Screening Comments: [id number] (CHLAMYDIA/GC) (UNSATISFACTORY FOR EVALUAITON)
[2020-12-16 21:02] LABS: Chlamydia Result Negative (Negative); GC Result Negative (Negative)
== END 2020-12-12 13:50 | disposition home or self-care (01) ==
LOC: LBN 13:49
PROVIDERS: PCP Obstetrics & Gynecology; Visit Provider Obstetrics & Gynecology
DX: Z11.3 Encounter for screening for infections with a predominantly sexual mode of transmission (principal); Z12.4 Encounter for screening for malignant neoplasm of cervix; R87.615 Unsatisfactory cytologic smear of cervix
CPT/HCPCS: 87491; 87591; 88142

== ENCOUNTER 2021-01-02 09:42 | Outpatient (REF) | payer OTHER, SELFPAY ==
--- NOTE | 2021-01-02 09:30 | PAPFT_PTH ---
PATIENT: Dick Rubio LOC: [facility] U#:[id number] AGE/SX: 35/F ROOM: RE01/02/[address]: Gloria Cerna DO : 1985 BED: DIS: 01/02/2021 SPEC #: [id number] RECD: 01/02/21 12:42 STATUS: [place] REQ #: [id number] BROOKE: 01/02/21 09:[address]: Gloria Cerna DEPT: [facility] Cytology RECD BY: Hali Santiago ENTERED: 01/02/21 12:42 SP TYPE: PAPFT OTHR DR: Yobani Fowler MD Tissues: 1 - CX/ENDOCX FOR PAP SMEARS Procedures: PAP THIN PREP/[facility]VM Screening HPV DNA PROBE Comments: [id number] (CHLAMYDIA/GC)
[2021-01-03 16:25] LABS: Chlamydia Result Negative (Negative); GC Result Negative (Negative)
== END 2021-01-02 09:43 | disposition home or self-care (01) ==
LOC: LBN 09:42
PROVIDERS: PCP Obstetrics & Gynecology; Visit Provider Obstetrics & Gynecology
DX: Z11.3 Encounter for screening for infections with a predominantly sexual mode of transmission (principal); Z12.4 Encounter for screening for malignant neoplasm of cervix; Z11.51 Encounter for screening for human papillomavirus (HPV)
CPT/HCPCS: 87491; 87591; 88142; 87624